=== PATIENT | female | born 1975 | race Two or more races ===

== ENCOUNTER 2017-03-03 19:51 | Emergency (ER) | payer SELFPAY ==
[~2017-03-03] VITALS: Ht 160 cm; Wt 62.6 kg
[2017-03-03 20:20] VITALS: BP 159/89
[2017-03-03] MEDS ORDERED: Cyclobenzaprine 10mg Tab ORAL ONE (20:30)
[2017-03-03] MEDS ORDERED: IBUPROFEN600 MG ORAL (21:33)
[2017-03-03] MEDS ORDERED: ROBAXIN-750750 MG PO (21:33)
[2017-03-03 21:57] VITALS: BP 159/89
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
== END 2017-03-03 21:57 | disposition home or self-care (01) ==
LOC: EMR 21:15
DX: S00.03XA Contusion of scalp, initial encounter (principal); S16.1XXA Strain of muscle, fascia and tendon at neck level, initial encounter; V49.50XA Passenger injured in collision with unspecified motor vehicles in traffic accident, initial encounter; Y92.410 Unspecified street and highway as the place of occurrence of the external cause; D57.1 Sickle-cell disease without crisis
CPT/HCPCS: 70450; 72125; 99284